=== PATIENT | female | born 1985 | race Caucasian/White ===

== ENCOUNTER 2017-08-23 09:06 | Emergency (ER) | payer BC ==
--- NOTE | 2017-08-23 09:24 | Emergency Department Record ---
History of Present Illness - General Chief complaint: Flank Pain Stated complaint: KIDNEY STONE Time Seen by Provider: 08/23/17 09:17 Source: Patient Mode of Arrival: Ambulatory Limitations: No limitations - History of Present Illness Initial comments: The patient is here due to the acute onset of L flank and lower quad pain an hour ago. The pain is sharp and severe and is associated with nausea and vomiting. The patient has a hx of kidney stones just like this in the past. She has had 3 stones in the past and has been able to pass all of them on her own. She denies any prior pain, fever, or dysuria. MD Complaint: Other Onset/Timin -: Hour(s) Location: Other Radiation: LLQ Severity: Severe Severity scale (1-10): 9 Quality: Sharp Consistency: Constant Improves with: None Worsens with: None Patient : No Associated Symptoms: Abdominal pain, Nausea/vomiting - Related Data Sexually active: Yes Home Medications Medication Instructions Recorded Confirmed Last Taken Phentermine HCl [Adipex-P] 37.5 mg PO 08/23/17 Unknown Previous Rx's Medication Instructions Recorded Hydrocodone/Acetaminophen [[place] 1 tab PO Q6H PRN #14 tab 09/26/15 5mg/325mg] Allergies Allergy/AdvReac Type Severity Reaction Status Date / Time No Known Drug Allergies Allergy Unverified 10/05/16 14:57 Travel Screening - Travel/Exposure Within Last 30 Days Have you traveled within the last 30 days?: No - Travel/Exposure Within Last Year Have you traveled outside the [place] in the last year?: No - Additonal Travel Details Have you been exposed to anyone with a communicable illness?: No - Travel Symptoms Symptom Screening: None Review of Systems Constitutional: Denies: Chills, Fever Eyes: Denies: Eye discharge ENT: Denies: Congestion Respiratory: Denies: Cough, Dyspnea Past Medical History - SOCIAL HISTORY Smoking Status: Never smoker - RESPIRATORY Hx Respiratory Disorders: No - CARDIOVASCULAR Hx Cardio Disorders: No - NEURO Hx Headaches: Yes - GI Hx GI Disorders: No - Hx Kidney Stones: Yes - ENDOCRINE Hx Diabetes: No Hx Thyroid Disease: No - MUSCULOSKELETAL Hx Musculoskeletal Disorders: No - PSYCH Hx Psych Problems: No - HEMATOLOGY/ONCOLOGY Hx Hematology/Oncology Disorders: No Family Medical History Any Significant Family History?: Yes Hx Diabetes: Grandparents Hx HTN: Father, Mother Physical Exam - General General Appearance: Alert, Cooperative, Mild distress - Head Head exam: Atraumatic, Normocephalic, Normal inspection - Eye Eye exam: Normal appearance, PERRL - Neck Neck exam: Normal inspection, Full ROM. negative: Tenderness - Respiratory Respiratory exam: Normal lung sounds bilaterally. negative: Respiratory distress - Cardiovascular Cardiovascular Exam: Regular rate, Normal rhythm, Normal heart sounds - GI/Abdominal GI/Abdominal exam: Soft, Normal bowel sounds, Tenderness (There is mild tenderness to palpation in the LLQ.) - Extremities Extremities exam: Normal inspection, Full ROM, Normal capillary refill. negative: Tenderness Course Vital Signs 08/23/17 09:09 Temperature 97.7 F Pulse Rate 81 Respiratory 18 Rate Blood Pressure 134/96 Pulse Ox 97 - Reevaluation(s) Reevaluation #1: The patient is still in a lot of pain. We will treat her with Toradol and obtain the CT. The patient's care will be turned over to Dr. Shin at this time. 08/23/17 10:37 Medical Decision Making - Lab Data Result diagrams: 08/23/17 09:25 08/23/17 09:25 Disposition Forms: Patient Portal Access Quality - Quality Measures Quality Measures: N/A - Blood Pressure Screening View Details: Yes Does Patient Have Any of the Following: No Blood Pressure Classification: Hypertensive Reading Systolic Measurement: 134 Diastolic Measurement: 96 Screening for High Blood Pressure: < Pre-Hypertensive BP, F/U Documented > [ G8950] Pre-Hypertensive Follow-up Interventions: Referral to alternative/primary care provider.
[2017-08-23] MEDS ORDERED: 0.9 % SODIUM CHLORIDE 1,000 ML BAG IV ONE (09:26)
[2017-08-23] MEDS ORDERED: ONDANSETRON HCL IV 4 MG/2 ML VIAL IV ONE (09:26)
[2017-08-23] MEDS ORDERED: HYDROMORPHONE HCL 1 MG/ML SYRINGE IVP ONE ×2 (09:27→09:46)
[2017-08-23 09:37] LABS: BASO % 0.8 % (0-6); EOS % 0.8 % (0-6); GRAN % 48.3 % (47-80); HEMOGLOBIN 14.5 gm/dl (11.6-16.0); LYMPH % 39.8 % (16-45); MEAN CELL VOLUME 86.7 fl (81-97); MEAN CORPUSCULAR HEMOGLOBIN 29.2 pg (27-33); MEAN CORPUSCULAR HGB CONC 33.7 g/dl (32-36); MEAN PLATELET VOLUME 10.5 fl (7.4-10.4); MONO % 10.3 % (0-9); PLATELET COUNT 250 K/uL (130-400); RED BLOOD COUNT 4.96 M/uL (3.80-5.40); RED CELL DISTRIBUTION WIDTH 13.8 % (11.5-14.5); WHITE BLOOD COUNT W/O DIFF 5.1 K/uL (4.2-12.2)
[2017-08-23 09:52] LABS: BLOOD UREA NITROGEN 11 mg/dL (6-20); CREATININE 0.5 mg/dL (0.5-0.9); EST GLOMERULAR FILTRATION RATE > 60 mL/min; GLUCOSE,RANDOM 110 mg/dL (74-109)
[2017-08-23] MEDS ORDERED: KETOROLAC 30 MG/ML VIAL IVP ONE (10:06)
[2017-08-23 11:25] LABS: URINE APPEARANCE CLOUDY; URINE BILIRUBIN SMALL (NEGATIVE); URINE BLOOD LARGE (NEGATIVE); URINE COLOR BROWN; URINE GLUCOSE (UA) NEGATIVE (NEGATIVE); URINE KETONE NEGATIVE (NEGATIVE); URINE LEUKOCYTE ESTERASE SMALL (NEGATIVE); URINE NITRITE NEGATIVE (NEGATIVE); URINE UROBILINOGEN 0.2 E.U./dL (0.20 - 1.00)
[2017-08-23 11:37] LABS: URINE BACTERIA FEW
[2017-08-23 12:22] LABS: URINE APPEARANCE CLEAR; URINE BILIRUBIN NEGATIVE (NEGATIVE); URINE BLOOD LARGE (NEGATIVE); URINE COLOR YELLOW; URINE GLUCOSE (UA) NEGATIVE (NEGATIVE); URINE KETONE NEGATIVE (NEGATIVE); URINE LEUKOCYTE ESTERASE NEGATIVE (NEGATIVE); URINE NITRITE NEGATIVE (NEGATIVE); URINE PROTEIN NEGATIVE (NEGATIVE); URINE UROBILINOGEN 0.2 E.U./dL (0.20 - 1.00)
[2017-08-23 12:25] LABS: URINE EPITHELIAL CELLS 0 - 2 (FEW); URINE RBC >50 (NONE SEEN); URINE WBC 0 - 2 (0-2/hpf)
[2017-08-23 12:26] LABS: URINE BACTERIA NONE SEEN
--- NOTE | 2017-08-23 12:40 | CT SCAN REPORT ---
EXAM: ABDOMEN AND PELVIS CT WITHOUT CONTRAST HISTORY: ACUTE LEFT LOWER QUADRANT ABDOMINAL PAIN. TECHNIQUE: Contiguous axial images from the lung bases to the symphysis pubis were obtained without contrast. Comparison: Abdomen and pelvis CT 09/26/15. FINDINGS: The lung bases are clear. The liver, spleen and adrenals are normal. Normal right kidney. Mild left hydronephrosis with partially obstructing calculus at the left ureteropelvic junction measuring 2.5 mm. The pancreas is normal. The gallbladder is absent. The visualized loops of small and large bowel are of normal caliber with no wall thickening. Normal appendix. No free intraperitoneal fluid or adenopathy. Cyst within the left ovary measuring up to 2.5 cm likely due to dominant follicles. The uterus is present. The abdominal wall is unremarkable. No lytic or blastic osseous lesion. IMPRESSION: MILD LEFT HYDRONEPHROSIS WITH PARTIALLY OBSTRUCTING 2.5 MM CALCULUS AT THE LEFT URETEROPELVIC JUNCTION. JOB NUMBER: [id number] MTDD
--- NOTE | 2017-08-23 12:54 | Emergency Department Record ---
History of Present Illness - General Chief complaint: Flank Pain Stated complaint: KIDNEY STONE Time Seen by Provider: 08/23/17 09:17 Source: Patient Mode of Arrival: Ambulatory Limitations: No limitations - History of Present Illness Onset/Timin -: Hour(s) Location: Other Radiation: LLQ Severity: Severe Severity scale (1-10): 9 Quality: Sharp Consistency: Constant Improves with: None Worsens with: None Patient : No Associated Symptoms: Abdominal pain, Nausea/vomiting - Related Data Sexually active: Yes Home Medications Medication Instructions Recorded Confirmed Last Taken Phentermine HCl [Adipex-P] 37.5 mg PO 08/23/17 Unknown Previous Rx's Medication Instructions Recorded Hydrocodone/Acetaminophen [[place] 1 tab PO Q6H PRN #14 tab 09/26/15 5mg/325mg] Hydrocodone/Acetaminophen [[place] 1 each PO Q6HR #20 tablet 08/23/17 5-325 Tablet] Allergies Allergy/AdvReac Type Severity Reaction Status Date / Time No Known Drug Allergies Allergy Unverified 10/05/16 14:57 Travel Screening - Travel/Exposure Within Last 30 Days Have you traveled within the last 30 days?: No - Travel/Exposure Within Last Year Have you traveled outside the [place] in the last year?: No - Additonal Travel Details Have you been exposed to anyone with a communicable illness?: No - Travel Symptoms Symptom Screening: None Review of Systems Constitutional: Denies: Chills, Fever Eyes: Denies: Eye discharge ENT: Denies: Congestion Respiratory: Denies: Cough, Dyspnea Past Medical History - SOCIAL HISTORY Smoking Status: Never smoker - RESPIRATORY Hx Respiratory Disorders: No - CARDIOVASCULAR Hx Cardio Disorders: No - NEURO Hx Headaches: Yes - GI Hx GI Disorders: No - Hx Kidney Stones: Yes - ENDOCRINE Hx Diabetes: No Hx Thyroid Disease: No - MUSCULOSKELETAL Hx Musculoskeletal Disorders: No - PSYCH Hx Psych Problems: No - HEMATOLOGY/ONCOLOGY Hx Hematology/Oncology Disorders: No Family Medical History Any Significant Family History?: Yes Hx Diabetes: Grandparents Hx HTN: Father, Mother Physical Exam - General Limitations: No limitations Course Vital Signs 08/23/17 08/23/17 08/23/17 09:09 09:50 12:00 Temperature 97.7 F Pulse Rate 81 Pulse Rate [ 76 74 Pulse Ox Probe] Respiratory 18 18 16 Rate Blood Pressure 134/96 Blood Pressure 121/90 115/73 [Right Arm] Pulse Ox 97 97 100 Medical Decision Making - Lab Data Result diagrams: 08/23/17 09:25 08/23/17 09:25 Lab Results 08/23/17 08/23/17 08/23/17 Range/Units 09:25 09:25 09:25 WBC 5.1 (4.2-12.2) K/uL RBC 4.96 (3.80-5.40) M/uL Hgb 14.5 (11.6-16.0) gm/dl Hct 43.0 (35.0-47.0) % MCV 86.7 (81-97) fl MCH 29.2 (27-33) pg MCHC 33.7 (32-36) g/dl RDW 13.8 (11.5-14.5) % Plt Count 250 (130-400) K/uL MPV 10.5 H (7.4-10.4) fl Gran % 48.3 (47-80) % Lymphocytes % 39.8 (16-45) % Monocytes % 10.3 H (0-9) % Eosinophils % 0.8 (0-6) % Basophils % 0.8 (0-6) % Sodium 140 (136-145) mmol/L Potassium 3.7 (3.4-4.5) mmol/L Chloride 102 (98-107) mmol/L Carbon Dioxide 26.0 (22-29) mmol/L Anion Gap 12.0 (7-16) BUN 11 (6-20) mg/dL Creatinine 0.5 (0.5-0.9) mg/dL Estimated GFR > 60 mL/min Random Glucose 110 H (74-109) mg/dL Calcium 9.4 (8.6-10.0) mg/dL Serum HCG, Qual Negative (NEGATIVE) Urine Color Urine Appearance Urine pH (5.0-8.0) Ur Specific [place] (1.002-1.030) Urine Protein (NEGATIVE) Urine Glucose (UA) (NEGATIVE) Urine Clinitest Urine Ketones (NEGATIVE) Urine Blood (NEGATIVE) Urine Nitrite (NEGATIVE) Urine Bilirubin (NEGATIVE) Urine Ictotest Prot Sulfosalicylic Acd Urine Urobilinogen (0.20 - 1.00) E.U./dL Ur Leukocyte Esterase (NEGATIVE) Urine RBC (NONE SEEN) Urine WBC (0-2/hpf) Ur Epithelial Cells (FEW) U Non-Squamous Epi Cells /hpf Urine Bacteria 08/23/17 08/23/17 08/23/17 Range/Units 11:25 12:10 12:16 WBC (4.2-12.2) K/uL RBC (3.80-5.40) M/uL Hgb (11.6-16.0) gm/dl Hct (35.0-47.0) % MCV (81-97) fl MCH (27-33) pg MCHC (32-36) g/dl RDW (11.5-14.5) % Plt Count (130-400) K/uL MPV (7.4-10.4) fl Gran % (47-80) % Lymphocytes % (16-45) % Monocytes % (0-9) % Eosinophils % (0-6) % Basophils % (0-6) % Sodium (136-145) mmol/L Potassium (3.4-4.5) mmol/L Chloride (98-107) mmol/L Carbon Dioxide (22-29) mmol/L Anion Gap (7-16) BUN (6-20) mg/dL Creatinine (0.5-0.9) mg/dL Estimated GFR mL/min Random Glucose (74-109) mg/dL Calcium (8.6-10.0) mg/dL Serum HCG, Qual (NEGATIVE) Urine Color Brown H Yellow Cancelled Urine Appearance Cloudy Clear Cancelled Urine pH 5.5 6.0 Cancelled (5.0-8.0) Ur Specific [place] >= 1.030 1.010 Cancelled (1.002-1.030) Urine Protein 100 mg/dl H Negative Cancelled (NEGATIVE) Urine Glucose (UA) Negative Negative Cancelled (NEGATIVE) Urine Clinitest Cancelled Urine Ketones Negative Negative Cancelled (NEGATIVE) Urine Blood Large H Large H Cancelled (NEGATIVE) Urine Nitrite Negative Negative Cancelled (NEGATIVE) Urine Bilirubin Small H Negative Cancelled (NEGATIVE) Urine Ictotest Cancelled Prot Sulfosalicylic Acd Cancelled Urine Urobilinogen 0.2 0.2 Cancelled (0.20 - 1.00) E.U./dL Ur Leukocyte Esterase Small H Negative Cancelled (NEGATIVE) Urine RBC Too numerous to cnt >50 (NONE SEEN) Urine WBC 6 - 10 0 - 2 (0-2/hpf) Ur Epithelial Cells 0 - 2 (FEW) U Non-Squamous Epi Cells 10 - 15 /hpf Urine Bacteria Few None seen Disposition Disposition: Discharge Clinical Impression: Renal lithiasis Hydronephrosis Qualifiers: Hydronephrosis type: with ureteral calculous obstruction Qualified Code(s): N13.2 - Hydronephrosis with renal and ureteral calculous obstruction Disposition: Home, Self-Care Condition: (1) Good Instructions: Kidney Stones (ED), How to Strain Your Urine (ED) Additional Instructions: follow up with doctor alesha. return sooner if worse. push fluids. Prescriptions: Hydrocodone/Acetaminophen [[place] 5-325 Tablet] 1 each PO Q6HR #20 tablet Forms: Patient Portal Access Quality - Quality Measures Quality Measures: N/A - Blood Pressure Screening Does Patient Have Any of the Following: No Blood Pressure Classification: Hypertensive Reading Systolic Measurement: 134 Diastolic Measurement: 96 Screening for High Blood Pressure: < Pre-Hypertensive BP, F/U Documented > [ G8950] Pre-Hypertensive Follow-up Interventions: Follow-up with rescreen every year.
== END 2017-08-23 13:18 | disposition home or self-care (01) ==
LOC: ER 09:06
DX: N13.2 Hydronephrosis with renal and ureteral calculous obstruction (principal); R10.32 Left lower quadrant pain; R11.2 Nausea with vomiting, unspecified; Z87.442 Personal history of urinary calculi
CPT/HCPCS: 74176; 80048; 81001; 81003; 81015; 84703; 85025; 96374; 96375; 99284; J1170; J1885; J2405; J7030

== ENCOUNTER 2017-08-23 20:24 | Emergency (ER) | payer BC ==
[2017-08-23] MEDS ORDERED: HYDROMORPHONE HCL 1 MG/ML SYRINGE IVP ONE ×2 (20:38→22:03)
[2017-08-23] MEDS ORDERED: ONDANSETRON HCL IV 4 MG/2 ML VIAL IVP ONE ×2 (20:38→22:57)
--- NOTE | 2017-08-23 20:42 | Emergency Department Record ---
History of Present Illness - General Chief complaint: Flank Pain Stated complaint: LOWER BACK PAIN Time Seen by Provider: 08/23/17 20:30 Source: Patient Mode of Arrival: Ambulatory Limitations: No limitations - History of Present Illness Initial comments: 31 yo female returns to ED after being seen earlier today and diagnosed with an obstructing 2.5 mm calculus at the left UVJ. Patient reports that her pain symptoms were well controlled when she left [facility], however her [place] and Ibuprofen 800 mg have not been helping following discharge. Patient reports that her flank pain symptoms are now 9/10, reports nausea and vomiting symptoms as well. Patient denies fever symptoms. Patient reports history of kidney stones 2 years ago, was seen by Dr. Abebe at that time. Complaint: Other (flank pain) Onset/Timin -: Days(s) Location: Other (left flank) Radiation: LLQ Severity: Severe Severity scale (1-10): 9 Quality: Aching Consistency: Constant Improves with: None Worsens with: None Patient : No Associated Symptoms: Nausea/vomiting - Related Data Previous Rx's Medication Instructions Recorded Hydrocodone/Acetaminophen [[place] 1 tab PO Q6H PRN #14 tab 09/26/15 5mg/325mg] Hydrocodone/Acetaminophen [[place] 1 each PO Q6HR #20 tablet 08/23/17 5-325 Tablet] Allergies Allergy/AdvReac Type Severity Reaction Status Date / Time No Known Drug Allergies Allergy Unverified 10/05/16 14:57 Review of Systems Constitutional: Denies: Chills, Fever, Malaise, Night sweats Eyes: Denies: Eye discharge, Eye pain ENT: Denies: Congestion, Ear pain, Epistaxis Respiratory: Denies: Cough, Dyspnea Cardiovascular: Denies: Chest pain, Dyspnea on exertion Endocrine: Denies: Fatigue, Heat or cold intolerance Gastrointestinal: Reports: Abdominal pain, Nausea, Vomiting. Denies: Constipation Genitourinary: Reports: Hematuria. Denies: Incontinence, Retention Musculoskeletal: Reports: Back pain. Denies: Arthralgia, Gout, Joint swelling Skin: Denies: Bruising, Change in color Neurological: Denies: Abnormal gait, Confusion, Headache, Seizure Psychiatric: Denies: Anxiety Hematological/Lymphatic: Denies: Anemia, Blood Clots Past Medical History - SOCIAL HISTORY Smoking Status: Never smoker - RESPIRATORY Hx Respiratory Disorders: No - CARDIOVASCULAR Hx Cardio Disorders: No - NEURO Hx Headaches: Yes - GI Hx GI Disorders: No - Hx Kidney Stones: Yes - ENDOCRINE Hx Diabetes: No Hx Thyroid Disease: No - MUSCULOSKELETAL Hx Musculoskeletal Disorders: No - PSYCH Hx Psych Problems: No - HEMATOLOGY/ONCOLOGY Hx Hematology/Oncology Disorders: No Family Medical History Hx Diabetes: Grandparents Hx HTN: Father, Mother Physical Exam - General General Appearance: Alert, Oriented x3, Cooperative, Moderate distress Limitations: No limitations - Head Head exam: Atraumatic, Normocephalic, Normal inspection Head exam detail: negative: Abrasion, Contusion, Junior's sign, General tenderness, Hematoma, Laceration - Eye Eye exam: Normal appearance. negative: Conjunctival injection, Periorbital swelling, Periorbital tenderness, Scleral icterus - ENT Ear exam: negative: Auricular hematoma, Auricular trauma Nasal Exam: negative: Active bleeding, Discharge, Dried blood, Foreign body Mouth exam: negative: Drooling, Laceration, Muffled voice, Tongue elevation - Neck Neck exam: Normal inspection. negative: Meningismus, Tenderness - Respiratory Respiratory exam: Normal lung sounds bilaterally. negative: Rales, Respiratory distress, Rhonchi, Stridor - Cardiovascular Cardiovascular Exam: Regular rate, Normal rhythm, Normal heart sounds - GI/Abdominal GI/Abdominal exam: Soft. negative: Rebound, Rigid, Tenderness - Rectal Rectal exam: Deferred - exam: Deferred - Extremities Extremities exam: Normal inspection. negative: Pedal edema, Tenderness - Back Back exam: Reports: CVA tenderness (L). Denies: CVA tenderness (R) - Neurological Neurological exam: Alert, Normal gait, Oriented X3 - Psychiatric Psychiatric exam: Normal affect, Normal mood - Skin Skin exam: Normal color. negative: Abrasion Type of lesion: negative: abrasion Course - Reevaluation(s) Reevaluation #1: 08/23/17 20:42 CT Abdomen and Pelvis w/o contrast: 2.5 mm calculus at the left UVJ with mild hydronephrosis present Reevaluation #2: 08/23/17 21:24 Labs reviewed and are grossly unremarkable for an acute process. UA pending. patient reports that her pain symptoms are beginning to return, Toradol ordered. Reevaluation #3: 08/23/17 22:18 UA reviewed, no evidence for infection. Reevaluation #4: 08/23/17 22:22 Patient reassessed and reports that her pain symptoms continue despite Toradol and Dilaudid. [facility] 1-call contacted for transfer for intractable flank pain symptoms due to her calculus. Reevaluation #5: 08/23/17 22:40 Case was discussed with Dr. Chapin, will accept transfer for pain control and urology consultation. Medical Decision Making - Lab Data Result diagrams: 08/23/17 20:55 08/23/17 20:55 Disposition Disposition: Transfer Clinical Impression: Ureteral colic Hydronephrosis Qualifiers: Hydronephrosis type: unspecified Qualified Code(s): N13.30 - Unspecified hydronephrosis Disposition: Acute Care Hospital Transfer Transfer To: [facility] Reason For Transfer: Intractable flank pain due to ureteral calculus Accepting Physician: Tavares Time Discussed w/Accepting Physician: 22:41 Condition: (2) Stable Forms: Patient Portal Access Time of Disposition: 22:41 Quality - Quality Measures Quality Measures: N/A - Blood Pressure Screening Does Patient Have Any of the Following: No Blood Pressure Classification: Normal BP Reading Systolic Measurement: 113 Diastolic Measurement: 79 Screening for High Blood Pressure: < Normal BP, F/U Not Required > [G8783]
[2017-08-23] MEDS ORDERED: 0.9 % SODIUM CHLORIDE 1000ML 1,000 ML IV SCH (20:45)
[2017-08-23 21:01] LABS: MEAN CELL VOLUME 87.3 fl (81-97); MEAN CORPUSCULAR HEMOGLOBIN 29.1 pg (27-33); MEAN CORPUSCULAR HGB CONC 33.3 g/dl (32-36); MEAN PLATELET VOLUME 10.1 fl (7.4-10.4); PLATELET COUNT 248 K/uL (130-400); RED BLOOD COUNT 4.81 M/uL (3.80-5.40); RED CELL DISTRIBUTION WIDTH 13.7 % (11.5-14.5); WHITE BLOOD COUNT W/O DIFF 8.4 K/uL (4.2-12.2)
[2017-08-23 21:14] LABS: BLOOD UREA NITROGEN 11 mg/dL (6-20); CREATININE 0.6 mg/dL (0.5-0.9); EST GLOMERULAR FILTRATION RATE > 60 mL/min
[2017-08-23 21:15] LABS: TOTAL PROTEIN 7.9 g/dL (6.6-8.7)
[2017-08-23 21:16] LABS: GLUCOSE,RANDOM 112 mg/dL (74-109)
[2017-08-23 21:19] LABS: ALB/GLOB RATIO 1.7 (1.1-1.8); ALKALINE PHOSPHATASE 62 U/L (35-104); ALT/SGPT 22 U/L (<33); AST/SGOT 18 U/L (10.0-35.0)
[2017-08-23] MEDS ORDERED: KETOROLAC 30 MG/ML VIAL IVP ONE (21:25)
[2017-08-23 22:08] LABS: URINE APPEARANCE CLEAR; URINE BILIRUBIN NEGATIVE (NEGATIVE); URINE BLOOD MODERATE (NEGATIVE); URINE COLOR YELLOW; URINE GLUCOSE (UA) NEGATIVE (NEGATIVE); URINE KETONE 15 mg/dL (NEGATIVE); URINE LEUKOCYTE ESTERASE NEGATIVE (NEGATIVE); URINE NITRITE NEGATIVE (NEGATIVE); URINE PROTEIN TRACE (NEGATIVE); URINE UROBILINOGEN 0.2 E.U./dL (0.20 - 1.00)
[2017-08-23 22:16] LABS: URINE BACTERIA NONE SEEN; URINE EPITHELIAL CELLS 0 - 2 (FEW); URINE MUCUS LIGHT; URINE RBC TNTC (NONE SEEN); URINE WBC 0 - 2 (0-2/hpf)
== END 2017-08-23 23:55 | disposition short-term general hospital (02) ==
LOC: ER 20:24
DX: N13.2 Hydronephrosis with renal and ureteral calculous obstruction (principal); M54.5 Low back pain; Z87.442 Personal history of urinary calculi
CPT/HCPCS: 80053; 81001; 85027; 96374; 96375; 96376; 99285; J1170; J1885; J2405; J7030